=== PATIENT | male | born 1970 | race Caucasian/White ===

== ENCOUNTER → 2024-12-29 08:48 | Outpatient (REF) | payer OTHER, SELFPAY | LOC: HWRAD 08:48 | PROVIDERS: ATTENDING PHYSICIAN Physician Assistant Medical | DX: M25.511 Pain in right shoulder (principal) | CPT/HCPCS: 73030 ==

== ENCOUNTER → 2025-03-10 10:04 | Outpatient (REF) | payer OTHER, SELFPAY | LOC: MRI 3T 10:04 | PROVIDERS: ATTENDING PHYSICIAN Physician Assistant Medical | DX: M25.511 Pain in right shoulder (principal) | CPT/HCPCS: 73221 ==